=== PATIENT | male | born 1965 | race African-American/Black ===

== ENCOUNTER 2018-01-31 18:21 | Emergency (ER) | payer MEDICAID ==
[~2018-01-31] VITALS: Ht 172.7 cm; Wt 113.0 kg
[2018-01-31] MEDS ORDERED: KETOROLAC 30MG/ML VIAL IV ONE (19:15)
[2018-01-31] MEDS ORDERED: TRAMADOL 50MG TABLET PO ONE (19:15)
[2018-01-31 21:41] VITALS: BP 166/89
== END 2018-01-31 21:42 | disposition home or self-care (01) ==
LOC: ER 18:21
DX: R60.0 Localized edema (principal); I87.2 Venous insufficiency (chronic) (peripheral); M25.461 Effusion, right knee; M10.9 Gout, unspecified; I10 Essential (primary) hypertension
CPT/HCPCS: 36415; 84550; 93971; 96374; 99285; J1885

== ENCOUNTER 2019-05-05 18:27 | Emergency (ER) | payer MEDICAID ==
[~2019-05-05] VITALS: Ht 175.3 cm; Wt 120.0 kg
[2019-05-05] MEDS ORDERED: INDOMETHACIN 25MG CAPSULE PO ONE (21:15)
[2019-05-05] MEDS ORDERED: HYDROCODONE/ACETAMINOPHEN 5/325MG TABLET PO ONE (21:15)
[2019-05-05 21:47] VITALS: BP 145/89
== END 2019-05-05 21:48 | disposition home or self-care (01) ==
LOC: ER 18:36
DX: M10.042 Idiopathic gout, left hand (principal); I10 Essential (primary) hypertension
CPT/HCPCS: 99283